=== PATIENT | female | born 2000 | race Caucasian/White ===

== ENCOUNTER 2022-08-22 14:16 | Emergency (ER) | payer OTHER ==
[2022-08-22 14:37] VITALS: TEMP 98.2; BMI 15.5
[2022-08-22] MEDS ORDERED: MECLIZINE HCL 25 MG TABLET (FP) PO ONE (15:17)
[2022-08-22] MEDS ORDERED: MECLIZINE HCL 25 MG TABLET (FP) ONE (15:43)
[2022-08-22 16:40] LABS: HEMATOCRIT 38.1 % (32.4-45.2); HEMOGLOBIN 12.6 G/dL (10.7-15.3); MCH 20.2 pg (25.7-33.7); MEAN CELL VOLUME 61.2 fl (80-96); MEAN PLT VOLUME 9.3 fl (7.5-11.1); PLATELET COUNT 336.9 10^3/uL (134-434); RBC 6.22 10^6/uL (3.60-5.2); RDW 19.3 % (11.6-15.6); WHITE BLOOD COUNT 9.4 10^3/uL (4.0-10.8)
[2022-08-22 17:05] LABS: ANISOCYTOSIS 1+; PLATELET ESTIMATE ADEQUATE
[2022-08-22 17:11] LABS: CALCIUM 9.6 mg/dl (8.5-10); CREATININE 0.7 mg/dl (0.55-1.3)
[2022-08-22 17:12] LABS: ALBUMIN 4.4 g/dl (3.4-5.0); BILIRUBIN,TOTAL 1.3 mg/dl (0.2-1); TOT PROT 7.1 g/dl (6.4-8.2)
[2022-08-22 17:37] VITALS: BP 100/72; PULSE 67; RESP 16
== END 2022-08-22 17:40 | disposition home or self-care (01) ==
LOC: FER 14:16
DX: R42 Dizziness and giddiness (principal)
CPT/HCPCS: 36415; 80053; 84703; 85027; 93005; 99284-25